=== PATIENT | male | born 1960 | race Hispanic/Latino ===

== ENCOUNTER 2023-03-31 23:10 | Emergency (ER) | payer OTHER ==
[2023-04-01] MEDS ORDERED: Ibuprofen 800 MG TAB ONE (00:07)
== END 2023-04-01 00:53 | disposition home or self-care (01) ==
LOC: MADERS 23:10
DX: S83.91XA Sprain of unspecified site of right knee, initial encounter (principal); Y99.0 Civilian activity done for income or pay; I10 Essential (primary) hypertension; Z79.899 Other long term (current) drug therapy; F17.210 Nicotine dependence, cigarettes, uncomplicated; X50.1XXA Overexertion from prolonged static or awkward postures, initial encounter

== ENCOUNTER 2025-05-13 09:13 | Outpatient (CLI) | payer MEDICARE, OTHER | END 2025-05-13 09:14 | disposition home or self-care (01) | LOC: MADLAB 09:13 → MADRAD 09:14 | PROVIDERS: ATTEND Family Medicine | DX: M25.562 Pain in left knee (principal) ==